=== PATIENT | female | born 1995 | race African-American/Black ===

== ENCOUNTER 2018-06-13 08:20 | Emergency (ER) | payer OTHER ==
[~2018-06-13] VITALS: Ht 172.7 cm; Wt 87.8 kg
[2018-06-13 08:28] VITALS: TEMP 36.8; Ht 172.7 cm; Wt 87.8 kg
[2018-06-13] MEDS ORDERED: KETOROLAC TROMETHAMINE 30 MG/ML VIAL IV STA (08:42)
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
[2018-06-13 10:51] VITALS: BP 117/68; PULSE 86; O2SAT 98
== END 2018-06-13 10:52 | disposition home or self-care (01) ==
LOC: EDBD 08:20 → C.EDB 08:24
DX: S00.83XA Contusion of other part of head, initial encounter (principal); S13.4XXA Sprain of ligaments of cervical spine, initial encounter; S80.01XA Contusion of right knee, initial encounter; S06.0X0A Concussion without loss of consciousness, initial encounter; V47.6XXA Car passenger injured in collision with fixed or stationary object in traffic accident, initial encounter; Y92.488 Other paved roadways as the place of occurrence of the external cause